=== PATIENT | male | born 1940 | race Caucasian/White ===

== ENCOUNTER 2022-10-15 14:06 | Outpatient (CLI) | payer OTHER | END 2022-10-15 14:07 | disposition home or self-care (01) | LOC: CSHWCC 14:06 | PROVIDERS: ATTEND Nurse Practitioner Family | DX: E11.621 Type 2 diabetes mellitus with foot ulcer (principal); L97.412 Non-pressure chronic ulcer of right heel and midfoot with fat layer exposed ==